=== PATIENT | female | born 1985 | race African-American/Black ===

== ENCOUNTER 2024-08-31 08:34 | Outpatient (CLI) | payer MEDICAID, SELFPAY ==
[2024-08-31 15:17] LABS: Chlamydia DNA Amplified* NOT DETECTED (No Detected); GC DNA Amplified* NOT DETECTED (No Detected)
== END 2024-08-31 08:35 | disposition home or self-care (01) ==
PROVIDERS: Visit Provider Advanced Practice Midwife
DX: N89.8 Other specified noninflammatory disorders of vagina (principal); Z11.3 Encounter for screening for infections with a predominantly sexual mode of transmission; Z11.59 Encounter for screening for other viral diseases
CPT/HCPCS: 86592; 86803; 87340; 87491; 87591